=== PATIENT | female | born 1995 ===

== ENCOUNTER 2017-05-15 09:49 | Day surgery (SDC) | payer OTHER ==
[2017-05-15] MEDS ORDERED: ceFAZolin 2 GM/SWFI 2 GM/20 ML SYR IVP ONE (10:07)
--- NOTE | 2017-05-15 10:14 | PDHPUP ---
History & Physical Update H&P update statement: This history and physical update is based on an assessment of the patient which was completed after admission or registration (within 24 hours), but prior to the surgery/procedure. H&P update: H&P reviewed & patient examined (hematoma is smaller)
[2017-05-15] MEDS ORDERED: BUPIVACAINE 0.5% 30 ML SDV ONE (11:09)
[2017-05-15] MEDS ORDERED: MIDAZOLAM 2 MG/2 ML VIAL IVP ONE (11:27)
--- NOTE | 2017-05-15 11:28 | PDANEPAE ---
ANE History of Present Illness evacuation hematoma L buttock ANE Past Medical History - Cardiovascular History Hx Hypertension: No Hx Arrhythmias: No Hx Chest Pain: No Hx Coronary Artery / Peripheral Vascular Disease: No Hx CHF / Valvular Disease: No Hx Palpitations: No - Pulmonary History Hx COPD: No Hx Asthma/Reactive Airway Disease: Yes Hx Recent Upper Respiratory Infection: No Hx Oxygen in Use at Home: No Hx Sleep Apnea: No Sleep Apnea Screening Result - Last Documented: Negative Pulmonary History Comment: exercise & allergy induced asthma - Neurologic History Hx Cerebrovascular Accident: No Hx Seizures: No Hx Dementia: No - Endocrine History Hx Diabetes: No - Renal History Hx Renal Disorders: No - Liver History Hx Hepatic Disorders: No - Neurological & Psychiatric Hx Hx Neurological and Psychiatric Disorders: No Neurological / Psychiatric History Comment: depression - Cancer History Hx Cancer: No - Congenital Disorder History Hx Congenital Disorders: No - GI History Hx Gastrointestinal Disorders: No - Other Health History Other Health History: wound to left buttock. missing 2 molars upper - Chronic Pain History Chronic Pain: No - Surgical History Prior Surgeries: none ANE Review of Systems Review of Systems: - Exercise capacity METS (RN): 6 METS ANE Patient History - Allergies Allergies/Adverse Reactions: No Known Allergies Allergy (Verified 05/13/17 14:04) - Home Medications Home medications: home medication list seen and reviewed Home Medications: Bupropion HCl 05/13/17 [Last Taken 05/15/17] Proair Hfa 05/13/17 [Last Taken 05/13/17] - NPO status NPO Status: no food or drink >8 hours NPO Since - Liquids (Date): 05/15/17 NPO Since - Liquids (Time): 08:00 NPO Since - Solids (Date): 05/14/17 NPO Since - Solids (Time): 17:00 - Anes Hx Anes Hx: no prior problems - Smoking Hx Smoking Status: Former smoker - Alcohol Use Alcohol Use: Occasionally - Family Anes Hx Family Hx Anesthesia Complications: none ANE Labs/Vital Signs - Vital Signs Blood Pressure: 125/90 Heart Rate: 99 Respiratory Rate: 14 O2 Sat (%): 98 Height: 160.02 cm Weight: 57.153 kg ANE Physical Exam - Airway Mallampati Score: Class 1 Mouth exam: normal dental/mouth exam - Pulmonary Pulmonary: no respiratory distress - Cardiovascular Cardiovascular: regular rate and rhythym - ASA Status ASA Status: II ANE Anesthesia Plan Anesthesia Plan: GA w LMA
[2017-05-15] MEDS ORDERED: fentaNYL 100 MCG/2 ML INJ ONE ×2 (11:43→13:09)
[2017-05-15] MEDS ORDERED: PROPOFOL/EMULSION 500 MG/50 ML BOTTLE IV ONE (11:43)
[2017-05-15] MEDS ORDERED: DEXAMETHASONE 4 MG/ML VIAL ONE (11:43)
[2017-05-15] MEDS ORDERED: ONDANSETRON 4 MG/2 ML VIAL ONE (11:43)
[2017-05-15] MEDS ORDERED: LIDOCAINE 2% JELLY 5 ML TUBE ONE (11:44)
[2017-05-15] MEDS ORDERED: LIDOCAINE 2% 100 MG/5 ML SYR ONE (11:44)
--- NOTE | 2017-05-15 12:26 | POSTOPPROG ---
Post Op Note Date of Operation: 05/15/17 Surgeon: Claudette Quintero Anesthesiologist: juancho Anesthesia: GET(General Endotracheal) Pre-op Diagnosis: gluteal hematoma Post-op Diagnosis: gluteal hematoma Indication: 21 yo with large gluteal hematoma Procedure: Evacuation of deep gluteal hematoma Findings: 95l08m5 cm gluteal hematoma Inf/Abcess present in the surg proc area at time of surgery?: No EBL: Minimal Specimen(s): none
[2017-05-15] MEDS ORDERED: fentaNYL 100 MCG/2 ML INJ IVP PRN (12:36)
[2017-05-15] MEDS ORDERED: ACETAMINOPHEN 500 MG TAB PO PRN (12:36)
[2017-05-15] MEDS ORDERED: ALBUTEROL 3 ML DEYVIAL IH PRN (12:36)
[2017-05-15] MEDS ORDERED: DEXAMETHASONE 4 MG/ML VIAL IVP PRN (12:36)
[2017-05-15] MEDS ORDERED: METOCLOPRAMIDE 10 MG/2 ML VIAL IVP PRN (12:36)
[2017-05-15] MEDS ORDERED: NALOXONE HCL 0.4 MG/ML INJ IVP PRN (12:36)
[2017-05-15] MEDS ORDERED: OXYCODONE/APAP 5/325 TAB PO PRN (12:36)
[2017-05-15] MEDS ORDERED: PROMETHAZINE HCL 25 MG/ML INJ IVP PRN (12:36)
[2017-05-15] MEDS ORDERED: PHENYLEPHRINE HCL 100 MCG/ML SYR IVP PRN (12:36)
[2017-05-15] MEDS ORDERED: MEPERIDINE 25 MG/ML SYR IVP PRN (12:36)
[2017-05-15] MEDS ORDERED: HYDROmorphONE/DILAUDID 1 MG/ML INJ IVP PRN (12:36)
[2017-05-15] MEDS ORDERED: HYDROCODONE/APAP 5/325 TAB PO PRN (12:36)
[2017-05-15] MEDS ORDERED: LR 500 ML IV PRN (12:36)
[2017-05-15] MEDS ORDERED: LABETALOL HCL 5 MG/ML 20 ML MDV IVP PRN (12:36)
[2017-05-15] MEDS ORDERED: ONDANSETRON 4 MG/2 ML VIAL IVP PRN (12:36)
--- NOTE | 2017-05-15 12:37 | POSTANESTH ---
Post Anesthetic Evaluation Cardiovascular Status: Normal, Stable Respiratory Status: Normal, Stable Level of Consciousness/Mental Status: Can Participate in Eval Pain Control: Adequate, Prn Tx Ordered Nausea/Vomiting Control: Adequate, Prn Tx Ordered Complications Possibly Related to Anesthesia: None Noted
[2017-05-15] MEDS ORDERED: HYDROmorphONE/DILAUDID 1 MG/ML INJ ONE (13:08)
[2017-05-15 13:46] VITALS: O2SAT 96
--- NOTE | 2017-05-15 14:05 | GOP ---
[f rep st] OPERATIVE REPORT DATE OF OPERATION: 05/15/2017 SURGEON: Claudette Quintero MD EMERGENCY ROOM RN: Fern Jensen PA-C. ANESTHESIA: Dr. Bharath Lake/general. PREOPERATIVE DIAGNOSIS: Deep left gluteal hematoma. POSTOPERATIVE DIAGNOSIS: Deep left gluteal hematoma. PROCEDURE PERFORMED: Incision and drainage of deep gluteal hematoma with wound VAC placement. FINDINGS: Hematoma deep to the gluteus, wound measures 10 x 15 x 6 cm. SPECIMENS: None. ESTIMATED BLOOD LOSS: 10 cc. INDICATIONS: Bhakti Lovett is a 21-year-old who fell snowboarding and developed a large gluteal hemat freddie. DESCRIPTION OF PROCEDURE: Bhakti was brought into the operating room, placed supine on the table, an d general anesthesia was administered. She was then placed in the decubitus position with the left s rupa up. I infiltrated all sites with 0.5% Marcaine prior to making incisions. I made an incision on her buttock. I dissected down through the subcutaneous tissues until I entered the gluteus. I then sp read this and used a hemostat to identify the hematoma. Once I identified this, I was able to evacuat e the hematoma. I performed suction irrigation to make sure that it was completely evacuated. The cav ity measured 10 x 15 x 7 cm. Hemostasis was achieved. A wound VAC was placed. She was placed back in the supine position, awakened, extubated, and transferred to PACU in stable condition. /[id number]/MODL
[2017-05-15 14:13] VITALS: BP 120/77; PULSE 104; RESP 18; TEMP 98.2
== END 2017-05-15 14:20 | disposition home or self-care (01) ==
LOC: FSGY 09:49
PROVIDERS: ATTEND Surgery
PROC: 0K9P0ZZ Drainage of Left Hip Muscle, Open Approach (ICD-10-PCS; principal; 2017-05-15 11:00)
DX: S30.0XXA Contusion of lower back and pelvis, initial encounter (principal); V00.311A Fall from snowboard, initial encounter; Y93.23 Activity, snow (alpine) (downhill) skiing, snowboarding, sledding, tobogganing and snow tubing; Y92.838 Other recreation area as the place of occurrence of the external cause; F32.9 Major depressive disorder, single episode, unspecified; J45.909 Unspecified asthma, uncomplicated
CPT/HCPCS: J0690; J1100; J1170; J2001; J2250; J2405; J2704; J3010